=== PATIENT | male | born 1985 | race Caucasian/White ===

== ENCOUNTER 2016-10-11 16:41 | Inpatient (IN) | payer OTHER ==
[2016-10-11] MEDS ORDERED: ACETAMINOPHEN TAB 500 MG TAB PO STA (17:04)
[2016-10-11] MEDS ORDERED: KETOROLAC 30 MG/ML 1 ML VIAL IVP STA (17:06)
[2016-10-11] MEDS: SODIUM CHLORIDE 0.9% 500 ML IV SCH ×2 (17:23→17:24)
[2016-10-11 17:50] LABS: Basophils # (A) 0.1 k/uL (0-0.2); Basophils % (A) 0 %; CH 30.5; CHCM 34.9; Eosinophils % (A) 0 %; HCT 37.5 % (39.0-53.0); HDW 2.57; HGB 13.1 gm/dL (13.0-17.5); Luc # (Auto) 0.17; Luc % (Auto) 1; Lymphocytes # (A) 1.9 k/uL (1.0-4.8); Lymphocytes % (A) 10 %; MCH 30.8 pg (25.0-35.0); MCHC 35.1 g/dL (31.0-37.0); MCV 87.8 fL (80.0-100.0); Mean Platelet Volume 7.4; Monocytes # (A) 0.9 k/uL (0-1.0); Monocytes % (A) 5 %; Neutrophils # (A) 16.3 k/uL (1.3-7.7); Neutrophils % (A) 84 %; RBC 4.27 m/uL (4.30-5.90); RDW 13.4 % (11.5-15.5); WBC 19.4 k/uL (3.8-10.6); WBC (Perox) 19.06
[2016-10-11 18:00] LABS: INR 1.4 (<1.2); Partial Thromboplastin Time 26.2 sec (22.0-30.0); Prothrombin Time 13.4 sec (9.0-12.0)
[2016-10-11 18:05] LABS: ALT 43 U/L (21-72); AST 23 U/L (17-59); Alkaline Phosphatase 91 U/L (38-126); Anion Gap 14 mmol/L; Blood Urea Nitrogen 16 mg/dL (9-20); Calcium 9.5 mg/dL (8.4-10.2); Carbon Dioxide 24 mmol/L (22-30); Chloride 101 mmol/L (98-107); Glucose 101 mg/dL (74-99); Non-African American GFR(MDRD) >60 (>60 ml/min/1.73 sqM); Potassium 3.8 mmol/L (3.5-5.1); Sodium 139 mmol/L (137-145); Total Bilirubin 1.2 mg/dL (0.2-1.3); Total Protein 7.6 g/dL (6.3-8.2)
[2016-10-11 18:05] LABS: Appearance,Urine Clear (Clear); Bilirubin,Urine Negative (Negative); Glucose,Urine (UA) Negative (Negative); Ketones,Urine Negative (Negative); Leukocyte Esterase,Urine Negative (Negative); Mucus,Urine Few /hpf; Nitrite,Urine Negative (Negative); Particle Count 6718; Protein,Urine 1+ (Negative); RBC,Urine 3 /hpf (0-5); Squamous Epithelial Cell,Urine <1 /hpf (0-4); UA Billing (MACRO vs. MICRO) MICRO; WBC,Urine 2 /hpf (0-5)
--- NOTE | 2016-10-11 18:05 | ED ---
General Adult HPI - General Chief complaint: Extremity Injury, Lower Stated complaint: left knee injury Time Seen by Provider: 10/11/16 16:53 Source: patient Mode of arrival: wheelchair Limitations: no limitations - History of Present Illness Initial comments: This 31-year-old white male presents with a complaint of left knee pain, swelling, and erythema. He states that it started yesterday morning. He first noticed it when he kneeled down on it. He denies any actual trauma or known overuse. He does occasional kneeling with work but not severe. He denies any previous similar incidents. He had a temperature of 103 at home last evening. He was nauseated and apparently vomited yesterday as well. He states that it is much worse with any movement. He complains of swelling to his left leg and calf region. No other complaints or modifying factors. - Related Data Home Medications Medication Instructions Recorded Confirmed Ibuprofen [Advil] 200 - 400 mg PO Q8HR PRN 10/11/16 10/11/16 Allergies Allergy/AdvReac Type Severity Reaction Status Date / Time No Known Allergies Allergy Verified 10/11/16 17:13 Review of Systems ROS Statement: Those systems with pertinent positive or pertinent negative responses have been documented in the HPI. ROS Other: All systems not noted in ROS Statement are negative. Past Medical History Past Medical History: No Reported History History of Any Multi-Drug Resistant Organisms: None Reported Past Surgical History: Hernia Repair Past Psychological History: No Psychological Hx Reported Smoking Status: Never smoker Past Alcohol Use History: Rare Past Drug Use History: None Reported General Exam - General Exam Comments Initial Comments: GENERAL: The patient is well nourished and well hydrated. VITAL SIGNS: Heart rate, blood pressure, respiratory rate reviewed as recorded in nurse's notes. EYES: Pupils are round and reactive. Extraocular movements are intact. No conjunctival / lid redness or swelling. ENT: No external evidence of injury, swelling, or ecchymosis. Airway is patent. Throat is clear. NECK: Nontender. No swelling or evidence of injury. No subcutaneous emphysema. Trachea is midline. No thyroid mass. HEART: Regular rate and rhythm. Good peripheral pulses. LUNGS/CHEST: Breath sounds clear and equal bilaterally. No rales, rhonchi, or wheezes. No ecchymosis, subcutaneous emphysema, or tenderness. ABDOMEN: Abdomen soft without tenderness. No palpable masses or organomegaly. No peritoneal signs. No abdominal wall swelling or ecchymosis. EXTREMITIES: There is significant tenderness, swelling, and erythema noted to the left knee more on the anterior aspect and extending laterally. There is no direct fluctuance over the bursa. There is pain with any significant movement of the left knee. Strength is intact. There is no definite effusion. The knee is very warm to touch. No thoracolumbar tenderness. NEUROLOGIC: Sensation is grossly intact. Cranial nerve exam reveals face is symmetrical, tongue is midline, speech is clear. SKIN: No abrasions or ecchymosis is noted. No induration or masses noted. There is erythema noted to the left knee as noted above. PSYCHIATRIC: Alert and oriented. Appropriate behavior and judgment. Limitations: no limitations Course Vital Signs 10/11/16 16:42 Temperature 100.1 F H Pulse Rate 103 H Respiratory 18 Rate Blood Pressure 118/62 O2 Sat by Pulse 96 Oximetry Medical Decision Making - Medical Decision Making The patient was seen and examined. All diagnostics were reviewed. He received some Toradol as well as Tylenol. The white blood cell count is significantly elevated at 19,000. The sedimentation rate and CRP are both significantly elevated as well. The remainder of labs are reviewed. The left lower extremity ultrasound is negative for DVT. The left knee x-rays negative for any acute process. Overall, the possibility of an atypical infectious bursitis is possible. The possibility of a septic knee is possible as well. The case is discussed with orthopedics. Dante, the PA for Dr. García does present and evaluates the patient. They would like the patient admitted to medicine and he may go to the operating room tomorrow. They're agreeable to antibiotics. He started on IV Unasyn and vancomycin. The case is discussed with Dr. Reynolds and he is agreeable to admission. - Lab Data Result diagrams: 10/11/16 17:36 10/11/16 17:36 Lab Results 10/11/16 10/11/16 10/11/16 Range/Units 17:30 17:36 17:36 WBC 19.4 H (3.8-10.6) k/uL RBC 4.27 L (4.30-5.90) m/uL Hgb 13.1 (13.0-17.5) gm/dL Hct 37.5 L (39.0-53.0) % MCV 87.8 (80.0-100.0) fL MCH 30.8 (25.0-35.0) pg MCHC 35.1 (31.0-37.0) g/dL RDW 13.4 (11.5-15.5) % Plt Count 225 (150-450) k/uL Neutrophils % 84 % Lymphocytes % 10 % Monocytes % 5 % Eosinophils % 0 % Basophils % 0 % Neutrophils # 16.3 H (1.3-7.7) k/uL Lymphocytes # 1.9 (1.0-4.8) k/uL Monocytes # 0.9 (0-1.0) k/uL Eosinophils # 0.0 (0-0.7) k/uL Basophils # 0.1 (0-0.2) k/uL ESR 36 H (0-15) mm/hr PT (9.0-12.0) sec INR (<1.2) APTT (22.0-30.0) sec Sodium 139 (137-145) mmol/L Potassium 3.8 (3.5-5.1) mmol/L Chloride 101 (98-107) mmol/L Carbon Dioxide 24 (22-30) mmol/L Anion Gap 14 mmol/L BUN 16 (9-20) mg/dL Creatinine 0.90 (0.66-1.25) mg/dL Est GFR (MDRD) Af Amer >60 (>60 ml/min/1.73 sqM) Est GFR (MDRD) Non-Af >60 (>60 ml/min/1.73 sqM) Glucose 101 H (74-99) mg/dL Plasma Lactic Acid Pacheco (0.7-2.0) mmol/L Calcium 9.5 (8.4-10.2) mg/dL Total Bilirubin 1.2 (0.2-1.3) mg/dL AST 23 (17-59) U/L ALT 43 (21-72) U/L Alkaline Phosphatase 91 (38-126) U/L C-Reactive Protein 220.7 H (<10.0) mg/L Total Protein 7.6 (6.3-8.2) g/dL Albumin 4.3 (3.5-5.0) g/dL Urine Color Yellow Urine Appearance Clear (Clear) Urine pH 6.0 (5.0-8.0) Ur Specific Mcdonald 1.030 (1.001-1.035) Urine Protein 1+ H (Negative) Urine Glucose (UA) Negative (Negative) Urine Ketones Negative (Negative) Urine Blood Trace H (Negative) Urine Nitrite Negative (Negative) Urine Bilirubin Negative (Negative) Urine Urobilinogen 2.0 (<2.0) mg/dL Ur Leukocyte Esterase Negative (Negative) Urine RBC 3 (0-5) /hpf Urine WBC 2 (0-5) /hpf Ur Squamous Epith Cells <1 (0-4) /hpf Urine Mucus Few H (None) /hpf 10/11/16 10/11/16 Range/Units 17:36 17:36 WBC (3.8-10.6) k/uL RBC (4.30-5.90) m/uL Hgb (13.0-17.5) gm/dL Hct (39.0-53.0) % MCV (80.0-100.0) fL MCH (25.0-35.0) pg MCHC (31.0-37.0) g/dL RDW (11.5-15.5) % Plt Count (150-450) k/uL Neutrophils % % Lymphocytes % % Monocytes % % Eosinophils % % Basophils % % Neutrophils # (1.3-7.7) k/uL Lymphocytes # (1.0-4.8) k/uL Monocytes # (0-1.0) k/uL Eosinophils # (0-0.7) k/uL Basophils # (0-0.2) k/uL ESR (0-15) mm/hr PT 13.4 H (9.0-12.0) sec INR 1.4 H (<1.2) APTT 26.2 (22.0-30.0) sec Sodium (137-145) mmol/L Potassium (3.5-5.1) mmol/L Chloride (98-107) mmol/L Carbon Dioxide (22-30) mmol/L Anion Gap mmol/L BUN (9-20) mg/dL Creatinine (0.66-1.25) mg/dL Est GFR (MDRD) Af Amer (>60 ml/min/1.73 sqM) Est GFR (MDRD) Non-Af (>60 ml/min/1.73 sqM) Glucose (74-99) mg/dL Plasma Lactic Acid Pacheco 0.9 (0.7-2.0) mmol/L Calcium (8.4-10.2) mg/dL Total Bilirubin (0.2-1.3) mg/dL AST (17-59) U/L ALT (21-72) U/L Alkaline Phosphatase (38-126) U/L C-Reactive Protein (<10.0) mg/L Total Protein (6.3-8.2) g/dL Albumin (3.5-5.0) g/dL Urine Color Urine Appearance (Clear) Urine pH (5.0-8.0) Ur Specific Mcdonald (1.001-1.035) Urine Protein (Negative) Urine Glucose (UA) (Negative) Urine Ketones (Negative) Urine Blood (Negative) Urine Nitrite (Negative) Urine Bilirubin (Negative) Urine Urobilinogen (<2.0) mg/dL Ur Leukocyte Esterase (Negative) Urine RBC (0-5) /hpf Urine WBC (0-5) /hpf Ur Squamous Epith Cells (0-4) /hpf Urine Mucus (None) /hpf Disposition Clinical Impression: Cellulitis of left knee, Fever, Leukocytosis, Septic infrapatellar bursitis Disposition: ADMITTED IP TO THIS HOSP Condition: Fair Referrals: Miles Mckeon DO [Primary Care Provider] - 1-2 days Time of Disposition: 19:16 Decision Date: 10/11/16 Decision Time: 19:16
--- NOTE | 2016-10-11 18:16 | US ---
EXAMINATION TYPE: US venous doppler duplex LE LT DATE OF EXAM: 10/11/2016 5:58 PM COMPARISON: NONE CLINICAL HISTORY: Pain. left leg pain and edema SIDE PERFORMED: Left TECHNIQUE: The lower extremity deep venous system is examined utilizing real time linear array sonog keisha with graded compression, doppler sonography and color-flow sonography. VESSELS IMAGED: External Iliac Vein (EIV) Common Femoral Vein Deep Femoral Vein Greater Saphenous Vein * Femoral Vein Popliteal Vein Small Saphenous Vein * Proximal Calf Veins (* superficial vessels) Left Leg: Negative for DVT IMPRESSION: Negative exam. No evidence of deep venous thrombosis in the left leg.
--- NOTE | 2016-10-11 18:38 | XR ---
EXAMINATION TYPE: XR knee complete LT DATE OF EXAM: 10/11/2016 COMPARISON: NONE HISTORY: Pain TECHNIQUE: 3 views FINDINGS: I see no fracture nor dislocation. Joint spaces are normal. There are no pathologic calcifi cations. IMPRESSION: Negative left knee exam
[2016-10-11] MEDS ORDERED: VANCOMYCIN 1,000 MG in SODIUM CHLORIDE 0.9% 250 ML IVPB STA (18:42)
[2016-10-11] MEDS ORDERED: AMPICILLIN-SULBACTAM 3 GM in SODIUM CHLORIDE 0.9% 100 ML IVPB STA (18:42)
[2016-10-11] MEDS ORDERED: IV VANCOMYCIN PER PHARMACY 1 EACH MISC MISCELLANE PRN (18:42)
[2016-10-11 18:45] LABS: C Reactive Protein 220.7 mg/L (<10.0)
[2016-10-11 19:05] LABS: Erythrocyte Sedimentation Rate 36 mm/hr (0-15)
[2016-10-11] MEDS ORDERED: IBUPROFEN 400 MG TAB PO PRN (19:17)
[2016-10-11] MEDS ORDERED: HYDROmorphone 1 MG/ML 1 ML SYRINGE IV PRN (19:17)
[2016-10-11] MEDS ORDERED: ACETAMINOPHEN TAB 325 MG TAB PO PRN (19:17)
[2016-10-11] MEDS ORDERED: NALOXONE 0.4 MG/ML 1 ML VIAL IV PRN (19:17)
--- NOTE | 2016-10-11 19:18 | P.HPOR ---
History of Present Illness H&P Date: 10/11/16 Chief Complaint: Left knee cellulitis with septic prepatellar bursitis This is a 31-year-old male who was seen and evaluated today in the emergency room. Patient presented to the emergency room with regards to increasing pain, swelling, erythema involving the left knee. 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 Patient initially noticed the discomfort over the anterior aspect of the left knee yesterday at work when enough down. He did not appreciate any object that he kneeled on. Throughout the day and into the night he started to develop more pain along with fever. Patient did go to work today, noticed the redness was significantly worsening and so was the pain and swelling, this prompted him to go to the hospital. Upon arrival, multiple imaging and lab tests were done. I was contacted by the emergency room physician regarding this patient, and I reported to the hospital for evaluation. At bedside in the emergency room, patient appears comfortable resting in bed. He notes pain more over the anterior and lateral aspect of the knee itself. He denies any pain involving the right lower extremity, bilateral upper extremity, cervical, thoracic and lumbar spine. Patient cannot remember any significant trauma to the left knee. Patient states about 3 or 4 years ago he had a fracture involving the left leg, there is no orthopedic surgical intervention done at that time. Patient denies being sick recently. He does admit to having fevers over the last few days. He denies any paresthesias of the left lower extremity or right lower extremity. He is a relatively healthy male that takes no medications. He denies any chest pain, lightheadedness, shortness of breath, abdominal discomfort, lower extremity paresthesias. Review of Systems Constitutional: Reports as per HPI Past Medical History Past Medical History: No Reported History History of Any Multi-Drug Resistant Organisms: None Reported Past Surgical History: Hernia Repair Past Psychological History: No Psychological Hx Reported Smoking Status: Never smoker Past Alcohol Use History: Rare Past Drug Use History: None Reported Medications and Allergies Home Medications Medication Instructions Recorded Confirmed Type Ibuprofen [Advil] 200 - 400 mg PO Q8HR PRN 10/11/16 10/11/16 History Allergies Allergy/AdvReac Type Severity Reaction Status Date / Time No Known Allergies Allergy Verified 10/11/16 17:13 Physical Examination Left lower extremity: Obvious erythema present over the anterior aspect of the knee and also traces the medial and lateral aspects. No significant effusion present around the knee. There is some mild fluctuance present over the prepatellar bursal area, with notable tenderness in that area. He also remains tender in the lateral patellar facet. Patient is able to extend the leg fully, he can flex the knee to about 90 with minimal difficulty, this does reproduce some tightness over the anterior and lateral aspect of the knee. Logroll maneuver reproduces no pain in the left hip. There is no obvious pain with palpation throughout the foot and ankle, his range of motion is intact at the foot and ankle. His calf is soft, there is no tenderness with palpation. His dorsal pedis pulses 2+, his sensory exam to light touch is intact Results - Labs Labs: Abnormal Lab Results - Last 24 Hours (Table) 10/11/16 10/11/16 10/11/16 Range/Units 17:30 17:36 17:36 WBC 19.4 H (3.8-10.6) k/uL RBC 4.27 L (4.30-5.90) m/uL Hct 37.5 L (39.0-53.0) % Neutrophils # 16.3 H (1.3-7.7) k/uL ESR 36 H (0-15) mm/hr PT (9.0-12.0) sec INR (<1.2) Glucose 101 H (74-99) mg/dL C-Reactive Protein 220.7 H (<10.0) mg/L Urine Protein 1+ H (Negative) Urine Blood Trace H (Negative) Urine Mucus Few H (None) /hpf 10/11/16 Range/Units 17:36 WBC (3.8-10.6) k/uL RBC (4.30-5.90) m/uL Hct (39.0-53.0) % Neutrophils # (1.3-7.7) k/uL ESR (0-15) mm/hr PT 13.4 H (9.0-12.0) sec INR 1.4 H (<1.2) Glucose (74-99) mg/dL C-Reactive Protein (<10.0) mg/L Urine Protein (Negative) Urine Blood (Negative) Urine Mucus (None) /hpf H & H 10/11/16 Range/Units 17:36 Hgb 13.1 (13.0-17.5) gm/dL Hct 37.5 L (39.0-53.0) % Coagulation 10/11/16 Range/Units 17:36 INR 1.4 H (<1.2) Result Diagrams: 10/11/16 17:36 10/11/16 17:36 - Diagnostic results Knee x-ray: report reviewed, image reviewed Assessment and Plan Plan: Imaging: AP and lateral views of the left knee were obtained, no acute fractures or dislocations present I can appreciate some soft tissue thickening in the prepatellar bursal region. Assessment: 1. Left knee pain 2. Left knee septic prepatellar bursitis 3. Unlikely left knee septic arthritis Plan: 1. I was able to discuss this case with my attending Dr. Salcedo, including both imaging, lab and physical exam findings. This is a likely septic prepatellar bursitis involving this left knee. Our plan is to admit the patient to the hospital, we will start broad-spectrum IV antibiotics. He will be made nothing by mouth after midnight with plan for an I&D tomorrow morning. 2. I did discuss this case, including need for surgery with the patient today at bedside. He is in agreement and would like to proceed. 3. Obtain consent 4. Nothing by mouth after midnight 5. Weight-bear as tolerated 6. Pain control 7. Infectious disease consult 8. Further recommendations to follow
[2016-10-11] MEDS ORDERED: VANCOMYCIN 2,000 MG in SODIUM CHLORIDE 0.9% 500 ML IVPB ONE (19:30)
[2016-10-11 20:23] VITALS: BMI 30.8
[2016-10-11] MEDS: SODIUM CHLORIDE 0.9% 1,000 ML IV SCH (22:05)
[2016-10-12] MEDS: AMPICILLIN-SULBACTAM 3 GM in SODIUM CHLORIDE 0.9% 100 ML IVPB SCH ×5 (01:50→23:48)
[2016-10-12] MEDS: ONDANSETRON 4 MG/2 ML VIAL IVP PRN ×2 (03:53→13:09)
[2016-10-12] MEDS: VANCOMYCIN 1,750 MG in SODIUM CHLORIDE 0.9% 250 ML IVPB SCH ×3 (03:54→19:53)
[2016-10-12] MEDS: ENOXAPARIN 40 MG/0.4 ML SYRINGE SQ SCH (08:56)
[2016-10-12] MEDS ORDERED: ESOMEPRAZOLE 20 MG in SODIUM CHLORIDE 0.9% 50 ML IVPB SCH (09:00)
[2016-10-12] MEDS ORDERED: IV FLUID CONTINUATION 1,000 ML IV ONE (09:11)
[2016-10-12 09:53] LABS: Basophils % (A) 0 %; CH 30.3; CHCM 33.6; Eosinophils # (A) 0.2 k/uL (0-0.7); Eosinophils % (A) 1 %; HDW 2.58; HGB 13.3 gm/dL (13.0-17.5); Luc # (Auto) 0.17; Luc % (Auto) 1; Lymphocytes # (A) 1.3 k/uL (1.0-4.8); Lymphocytes % (A) 6 %; MCHC 34.2 g/dL (31.0-37.0); MCV 90.7 fL (80.0-100.0); Mean Platelet Volume 9.1; Monocytes # (A) 0.9 k/uL (0-1.0); Monocytes % (A) 5 %; Neutrophils # (A) 18.2 k/uL (1.3-7.7); Neutrophils % (A) 88 %; RDW 13.3 % (11.5-15.5); WBC 20.7 k/uL (3.8-10.6); WBC (Perox) 20.89
[2016-10-12] MEDS ORDERED: fentaNYL (PF) 50 MCG/ML 2 ML AMP ONE (10:30)
[2016-10-12] MEDS ORDERED: PROPOFOL 10 MG/ML 20 ML VIAL IV ONE (10:30)
[2016-10-12] MEDS ORDERED: LIDOCAINE 1% INJ 10MG/ML (20 ML MDV) ONE (10:30)
[2016-10-12] MEDS ORDERED: MIDAZOLAM 2 MG/2 ML VIAL ONE (10:30)
[2016-10-12] MEDS ORDERED: SUCCINYLCHOLINE CHLORIDE 100 MG/5 ML SYR IV ONE (10:30)
[2016-10-12] MEDS ORDERED: HYDROmorphone (PF) 1 MG/ML ONE (10:30)
[2016-10-12] MEDS ORDERED: HYDROcodone/APAP 7.5-325MG 1 EACH TAB PO PRN (11:46)
--- NOTE | 2016-10-12 11:51 | P.OP ---
Date of Procedure: 10/12/16 Preoperative Diagnosis: Left knee septic prepatellar bursitis/septic knee arthritis Postoperative Diagnosis: Same Procedure(s) Performed: Left knee arthroscopic partial synovectomy/lavage/open prepatellar bursectomy/ irrigation and debridement Implants: Anesthesia: MARY Surgeon: Miles Salcedo Extruder Tender #1: Phoenix Hurley Estimated Blood Loss (ml): 50 Pathology: other (Prepatellar bursal tissue, cultures from the fluid, cultures from prepatellar bursa) Condition: stable Disposition: PACU Indications for Procedure: The patient's 31-year-old male who presents with 1-2 day history of increasing pain in his left knee, redness, and fevers. He had been doing a lot of kneeling. Upon evaluation he was noted have possible septic left knee arthritis versus septic patellar bursitis. A discussion of the risks and benefits of operative intervention was made with the patient. I informed him we would likely attempt aspiration of his left knee and the prepatellar region and consider arthroscopic lavage in addition to open incision and drainage with irrigation and debridement of the prepatellar region. Specific risks of surgery to include persistence of infection, possible need for subsequent procedures was discussed. Informed consent was obtained. Operative Findings: Mild synovitis left knee/hypertrophic prepatellar bursitis Description of Procedure: The patient was brought to the operating room, and after induction of general anesthesia I examined the left knee. There is moderate warmth along with erythema surrounding the anterior aspect. I did not appreciate a definite prepatellar fluctuance, however there appeared to be soft tissue thickening. I also appeared to be a mild effusion in his left knee. I did attempt aspiration prepatellar region and no significant fluid was expressed. I also aspirated the knee from a lateral approach and got 10 mL of serous-appearing fluid. This was sent for culture. The left lower extremity was then prepped and draped in normal fashion. A superior lateral portals made through a 3 mm skin incision superior and lateral to the patella. This was used for outflow. A lateral portals made through a 5 mm vertical skin incision lateral to the patella tendon above the joint line. Diagnostic arthroscopy was performed. A medial portals made through a similar incision medial to the patella tendon above the joint line. There was mild synovitis the medial lateral and patellofemoral compartments was debrided with motorized shaver. I did not appreciate significant chondrolysis or purulent fluid. The anterior cruciate ligament appeared to be intact. There is mild degenerative changes involving the medial compartment. I copiously irrigated the knee with 9 L of fluid. The arthroscope was then removed. The leg was elevated. A 4 cm incision was made over the prepatellar region. Skin was incised sharply. The tourniquet was inflated to 250 mmHg. The skin was incised sharply. Subcutaneous tissues were divided sharply. There was significant bursal thickening and a portion of this tissue was sent for pathology. The prepatellar region was copiously irrigated with saline. I placed a [place] drain deep. The skin was loosely reapproximated with simple 3-0 nylon suture. A sterile dressing was applied. The tourniquet was deflated with approximately 20 minutes total tourniquet time. The patient was awoken from general anesthesia and transferred to recovery room in good condition. Blood loss was estimated at 50 mL. No complications were incurred. Sponge and needle counts were correct in the case.
[2016-10-12] MEDS ORDERED: SODIUM CHLORIDE 0.9% 1,000 ML IV ONE (12:30)
--- NOTE | 2016-10-12 13:24 | HP ---
SUBJECTIVE: This is a 31 year old white male admitted to the emergency room due to increased redness, pain and swelling of the left knee. He apparently over the past day progressive pain, swelling, redness, warmth, anterior aspect of the left knee. 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 He had low grade fever with some redness of his knee upon coming to the hospital. He has most of his pain over the anterior and lateral part of his left knee. No pain on the back or the upper extremity or the right leg. Denies any trauma. Possible surgery will be done on his knee due to elevated white count, fevers, due to septic knee, he will be placed on Vancomycin and Zosyn and admitted. He is having no chest pain , shortness of breath, abdominal discomfort. 14 point review of systems negative except for what is mentioned in the HPI. Surgical history: Hernia repair. Social history: No smoking. No alcohol. Home medications are Ibuprofen. Allergies are negative. Physical exam: Vital signs stable. Afebrile. White count 19.4. Neutrophils 16.3, elevated, sed rate 36, elevated, ( ). Musculoskeletal anterior knee medial and lateral with some redness, swelling and tenderness. Flexion to 90 degrees. Unable to extend it completely. Cardiovascular S1, S2. Lungs are clear. GI is soft. Vascular: Normal dorsalis pedis, posterior tibial, ( ) . Fair mood and affect. Psych: Fair mood. Neurological: Alert and oriented times three. Cranial nerves intact. Hemoglobin 13.1. ASSESSMENT: 1. Probable septic left knee versus prepatellar bursitis. 2. Acute left knee pain. 3. Leukocytosis secondary to possible septic knee. Admit. IV antibiotics for Vancomycin and Zosyn. Surgery for endoscopy versus joint aspiration will be done in the morning. [facility]
[2016-10-12] MEDS: SODIUM CHLORIDE 0.9% 1,000 ML IV SCH (15:04)
[2016-10-12] MEDS: HYDROcodone/APAP 7.5-325MG 1 EACH TAB PO PRN ×2 (19:53→23:55)
[2016-10-12] MEDS: HYDROmorphone 1 MG/ML 1 ML SYRINGE IVP PRN (21:25)
--- NOTE | 2016-10-12 22:45 | P.CONS ---
History of Present Illness - Reason for Consult Consult date: 10/12/16 - Chief Complaint pain left knee - History of Present Illness 31-year-old male presents to the emergency center with relatively sudden onset of pain to his left knee. 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 He often knees throughout this day at work. He knelt down and noticed some pain to the knee and thought he had tweaked it a bit. The following hours it got worse and more swollen. The next day it was painful and he was unable to do his routine route and was just doing the driving. It then markedly worsened. Increasing pain and swelling. Then he was sent to the emergency room.. There is evidence of an extensive swelling to the left pre-[place] area. He has been seen by orthopedic surgery has been taken in the operating room. The prepatellar bursa has been debrided with evidence of infection. Arthroscopy was performed without evidence of jody purulence of the knee. Infectious diseases consultation regarding antibiotic therapy and plans for outpatient treatment. Review of Systems HEENT:Denies headache or acute visual change. Denies sinus or mouth discomforts. Denies neck stiffness or pain. Denies significant oral cavity pain. Denies difficulty on swallowing. Lungs: Denies significant shortness of breath, cough, sputum production, or hemoptysis. Cardiovascular: Denies significant shortness of breath, chest pain, chest wall pain, orthopnea, dyspnea on exertion, syncope Gastrointestinal:Denies nausea, vomiting, diarrhea, constipation, hematemesis, melena, hematochezia. No no significant change of bowel habit noticed. Musculoskeletal: pain to the left knee from surgery Skin: Denies new rash or lesions. No new ulcers or wounds are related.. Neuro: Denies headache or visual change. Denies any new onset weakness or difficulty with ambulation. Denies falls or seizures. Psychiatric:Denies anxiety or depression. Endocrine: Denies significant fatigue, denies significant weight loss or weight gain. Past Medical History Past Medical History: No Reported History History of Any Multi-Drug Resistant Organisms: None Reported Past Surgical History: Hernia Repair Additional Past Surgical History / Comment(s): left leg fracture Past Psychological History: No Psychological Hx Reported Additional Psychological History / Comment(s): lives in the family home with his. No tobacco use. please multiple ports including hockey and baseball play football in high school. Alcohol use. Works for [employer]. No experience. no international travel. 5-year-old daughter at home. no animals. No recreational drug use Smoking Status: Never smoker Past Alcohol Use History: Rare Past Drug Use History: None Reported - Past Family History Brother(s) Family Medical History: No Reported History Medications and Allergies Home Medications and Allergies Comment(s): Current Medications Acetaminophen (Tylenol Tab) 650 mg PO Q6HR PRN PRN Reason: Mild Pain or Fever > 100.5 Hydrocodone Bitart/Acetaminophen ([place] 7.5-325) 1 each PO Q4H PRN PRN Reason: Pain MILD TO MODERATE Last Admin: 10/12/16 19:53 Dose: 1 each Enoxaparin Sodium (Lovenox) 40 mg SQ DAILY [facility] Last Admin: 10/12/16 08:56 Dose: Not Given Hydromorphone HCl (Dilaudid) 1 mg IVP Q3HR PRN PRN Reason: Pain SEVERE Last Admin: 10/12/16 21:25 Dose: 1 mg Vancomycin HCl 1,750 mg/ (Sodium Chloride) 250 mls @ 125 mls/hr IVPB Q8H [facility] Last Admin: 10/12/16 19:53 Dose: 125 mls/hr Ampicillin Sodium/Sulbactam (Sodium 3 gm/ Sodium Chloride) 100 mls @ 100 mls/ hr IVPB Q6HR [facility] Last Admin: 10/12/16 18:06 Dose: 100 mls/hr Sodium Chloride (Saline 0.9%) 1,000 mls @ 75 mls/hr IV .[id number] [facility] Last Admin: 10/12/16 15:04 Dose: Not Given Ibuprofen (Motrin) 400 mg PO Q6HR PRN PRN Reason: Mild Pain or Fever > 100.5 Miscellaneous Information (Vancomycin Trough Due) 1 each MISCELLANE ONCE ONE Stop: 10/13/16 11:01 Naloxone HCl (Narcan) 0.2 mg IV Q2M PRN PRN Reason: Opioid Reversal Ondansetron HCl (Zofran) 4 mg IVP Q8HR PRN PRN Reason: Nausea And Vomiting Last Admin: 10/12/16 13:09 Dose: 4 mg Pantoprazole Sodium (Protonix) 40 mg PO -BRKFST [facility] Home Medications Medication Instructions Recorded Confirmed Type Ibuprofen [Advil] 200 - 400 mg PO Q8HR PRN 10/11/16 10/11/16 History Allergies Allergy/AdvReac Type Severity Reaction Status Date / Time No Known Allergies Allergy Verified 10/11/16 17:13 Physical Exam Vitals: Vital Signs Temp Pulse Pulse Resp BP Pulse Ox 10/12/16 15:00 98.2 F 75 18 113/56 95 10/12/16 14:30 78 16 101/59 96 10/12/16 14:00 73 16 103/59 98 10/12/16 13:25 98.0 F 86 16 131/75 95 10/12/16 12:41 91 16 128/71 98 10/12/16 12:26 93 16 128/65 95 10/12/16 12:11 89 16 135/65 99 10/12/16 11:56 94 16 136/60 98 10/12/16 11:41 99.9 F H 94 10 L 138/64 97 10/12/16 09:14 97.1 F L 88 16 107/61 96 10/12/16 07:00 98 F 95 18 118/67 94 L 10/11/16 22:48 97.9 F 82 16 112/55 95 Intake and Output 10/12/16 10/12/16 10/12/16 06:59 14:59 22:59 Intake Total 950 Output Total 450 50 Balance -450 900 Intake: IV 950 Output: Urine 450 Estimated Blood Loss 50 Other: Voiding Method Urinal Urinal Urinal # Voids 2 HEENT: Anicteric conjunctiva are pink and moist nasal mucosa grossly intact without significant lesions, there is no thrush. Neck: The neck is supple without significant lymphadenopathy or thyromegaly. Lungs: Good bilateral air entry without significant crackles or wheezing. There is no significant bronchial sounds. There is no egophony or dullness. Heart: Regular rate and rhythm with an audible S1-S2, no S3 no S4. There is no significant murmur click or rub, PMI was nondisplaced. Abdomen: Positive bowel sounds soft and nontender without palpable masses or organomegaly. There was no guarding or rebound. Extremities: The upper extremities have excellent pulses they are symmetric, no significant petechiae or telangiectasia. No splinter hemorrhages were noted. the right lower extremity is without lesions.the left knee has the extensive surgical dressibg that is in place and not removed. Neuro: Awake alert oriented to person place and time. There are no acute new gross focal sensory motor deficits. Results CBC & Chem 7: 10/12/16 08:00 10/11/16 17:36 Labs: Abnormal Lab Results - Last 24 Hours (Table) 10/12/16 Range/Units 08:00 WBC 20.7 H (3.8-10.6) k/uL Neutrophils # 18.2 H (1.3-7.7) k/uL Microbiology - Last 24 Hours (Table) 10/11/16 17:36 Blood Culture - Preliminary Blood No Growth after 24 hours 10/12/16 11:00 Gram Stain - Preliminary Knee - Left Wound Culture - Preliminary 10/12/16 11:00 Gram Stain - Preliminary Knee - Left Wound Culture - Preliminary 10/12/16 11:00 Anaerobic Culture - Preliminary Knee - Left 10/12/16 11:00 Anaerobic Culture - Preliminary Knee - Left 10/11/16 17:30 Urine Culture - Preliminary Urine,Voided Laboratory Results WBC 20.7 k/uL (3.8-10.6) H 10/12/16 08:00 RBC 4.30 m/uL (4.30-5.90) 10/12/16 08:00 Hgb 13.3 gm/dL (13.0-17.5) 10/12/16 08:00 Hct 39.0 % (39.0-53.0) 10/12/16 08:00 MCV 90.7 fL (80.0-100.0) 10/12/16 08:00 MCH 31.0 pg (25.0-35.0) 10/12/16 08:00 MCHC 34.2 g/dL (31.0-37.0) 10/12/16 08:00 RDW 13.3 % (11.5-15.5) 10/12/16 08:00 Plt Count 157 k/uL (150-450) 10/12/16 08:00 Neutrophils % 88 % 10/12/16 08:00 Lymphocytes % 6 % 10/12/16 08:00 Monocytes % 5 % 10/12/16 08:00 Eosinophils % 1 % 10/12/16 08:00 Basophils % 0 % 10/12/16 08:00 Neutrophils # 18.2 k/uL (1.3-7.7) H 10/12/16 08:00 Lymphocytes # 1.3 k/uL (1.0-4.8) 10/12/16 08:00 Monocytes # 0.9 k/uL (0-1.0) 10/12/16 08:00 Eosinophils # 0.2 k/uL (0-0.7) 10/12/16 08:00 Basophils # 0.0 k/uL (0-0.2) 10/12/16 08:00 ESR 36 mm/hr (0-15) H 10/11/16 17:36 PT 13.4 sec (9.0-12.0) H 10/11/16 17:36 INR 1.4 (<1.2) H 10/11/16 17:36 APTT 26.2 sec (22.0-30.0) 10/11/16 17:36 Sodium 139 mmol/L (137-145) 10/11/16 17:36 Potassium 3.8 mmol/L (3.5-5.1) 10/11/16 17:36 Chloride 101 mmol/L (98-107) 10/11/16 17:36 Carbon Dioxide 24 mmol/L (22-30) 10/11/16 17:36 Anion Gap 14 mmol/L 10/11/16 17:36 BUN 16 mg/dL (9-20) 10/11/16 17:36 Creatinine 0.90 mg/dL (0.66-1.25) 10/11/16 17:36 Est GFR (MDRD) Af Amer >60 (>60 ml/min/1.73 sqM) 10/11/16 17:36 Est GFR (MDRD) Non-Af >60 (>60 ml/min/1.73 sqM) 10/11/16 17:36 Glucose 101 mg/dL (74-99) H 10/11/16 17:36 Plasma Lactic Acid [place] 0.9 mmol/L (0.7-2.0) 10/11/16 17:36 Calcium 9.5 mg/dL (8.4-10.2) 10/11/16 17:36 Total Bilirubin 1.2 mg/dL (0.2-1.3) 10/11/16 17:36 AST 23 U/L (17-59) 10/11/16 17:36 ALT 43 U/L (21-72) 10/11/16 17:36 Alkaline Phosphatase 91 U/L (38-126) 10/11/16 17:36 C-Reactive Protein 220.7 mg/L (<10.0) H 10/11/16 17:36 Total Protein 7.6 g/dL (6.3-8.2) 10/11/16 17:36 Albumin 4.3 g/dL (3.5-5.0) 10/11/16 17:36 Urine Color Yellow 10/11/16 17:30 Urine Appearance Clear (Clear) 10/11/16 17:30 Urine pH 6.0 (5.0-8.0) 10/11/16 17:30 Ur Specific [place] 1.030 (1.001-1.035) 10/11/16 17:30 Urine Protein 1+ (Negative) H 10/11/16 17:30 Urine Glucose (UA) Negative (Negative) 10/11/16 17:30 Urine Ketones Negative (Negative) 10/11/16 17:30 Urine Blood Trace (Negative) H 10/11/16 17:30 Urine Nitrite Negative (Negative) 10/11/16 17:30 Urine Bilirubin Negative (Negative) 10/11/16 17:30 Urine Urobilinogen 2.0 mg/dL (<2.0) 10/11/16 17:30 Ur Leukocyte Esterase Negative (Negative) 10/11/16 17:30 Urine RBC 3 /hpf (0-5) 10/11/16 17:30 Urine WBC 2 /hpf (0-5) 10/11/16 17:30 Ur Squamous Epith Cells <1 /hpf (0-4) 10/11/16 17:30 Urine Mucus Few /hpf (None) H 10/11/16 17:30 Microbiology 10/11/16 17:36 Blood Blood Culture - Preliminary No Growth after 24 hours 10/12/16 11:00 Knee - Left Gram Stain - Preliminary 10/12/16 11:00 Knee - Left Wound Culture - Preliminary 10/12/16 11:00 Knee - Left Gram Stain - Preliminary 10/12/16 11:00 Knee - Left Wound Culture - Preliminary 10/12/16 11:00 Knee - Left Anaerobic Culture - Preliminary 10/12/16 11:00 Knee - Left Anaerobic Culture - Preliminary 10/11/16 17:30 Urine,Voided Urine Culture - Preliminary Assessment and Plan (1) Septic infrapatellar bursitis Narrative/Plan: 31-year-old male presents to Hospital with significant pain and swelling to his left knee. was taken Again with evidence of the significant infection of the bursa, Arthroscopically was performed without evidence of jody infection, Cultures however are pending.Antibiotic therapy with vancomycin and piperacillin tazobactam being utilized for now. The patient is somewhat anxious about his discharged home in the near future. Ideally would have cultures available. If there is any evidence of joint infection would need intravenous antibiotic therapy. A serious bursa infection also response considerably better to intravenous antibiotic therapy. Surgery will monitor and hopefully will be able to have a discharge plan. Not likely in keeping with the patient's desires. Status: Acute (2) Cellulitis of left knee Status: Acute (3) Fever Status: Acute (4) Leukocytosis Status: Acute
[2016-10-13] MEDS: VANCOMYCIN 1,750 MG in SODIUM CHLORIDE 0.9% 250 ML IVPB SCH ×2 (03:35→14:38)
[2016-10-13] MEDS: SODIUM CHLORIDE 0.9% 1,000 ML IV SCH ×2 (03:37→11:20)
[2016-10-13] MEDS: HYDROcodone/APAP 7.5-325MG 1 EACH TAB PO PRN ×5 (05:21→20:56)
[2016-10-13] MEDS: AMPICILLIN-SULBACTAM 3 GM in SODIUM CHLORIDE 0.9% 100 ML IVPB SCH ×3 (05:58→18:19)
[2016-10-13] MEDS: PANTOPRAZOLE 40 MG TABLET PO SCH (07:46)
[2016-10-13] MEDS: ENOXAPARIN 40 MG/0.4 ML SYRINGE SQ SCH (07:46)
[2016-10-13] MEDS: HYDROmorphone 1 MG/ML 1 ML SYRINGE IVP PRN ×5 (07:53→18:19)
--- NOTE | 2016-10-13 10:14 | P.PN ---
Subjective Principal diagnosis: Status post I&D left septic prepatellar bursal, left knee arthroscopy with lavage and partial synovectomy Patient is seen today resting in his hospital bed. Patient is seen today resting in his hospital bed. He appears comfortable. Minimal weightbearing at this time. Denies any fevers or chills. States that the knee feels a lot better since yesterday. Objective - Vital Signs Vital signs: Vital Signs Temp 98.6 F 10/13/16 07:00 Pulse 95 10/13/16 08:00 Resp 18 10/13/16 08:00 BP 114/56 10/13/16 07:00 Pulse Ox 93 L 10/13/16 07:00 Intake & Output 10/12/16 10/13/16 10/13/16 18:59 06:59 18:59 Intake Total 950 1125 Output Total 50 575 Balance 900 550 Weight 108.862 kg Intake: IV 950 Intake, IV Titration 1125 Amount Ampicillin-Sulbactam 3 gm 100 In Sodium Chloride 0.9% 100 ml @ 100 mls/hr IVPB Q6HR [facility] Rx#:[id number] Sodium Chloride 0.9% 1, 525 000 ml @ 75 mls/hr IV . [id number] [facility] Rx#:[id number] Vancomycin 1,750 mg In 500 Sodium Chloride 0.9% 250 ml @ 125 mls/hr IVPB Q8H [facility] Rx#:[id number] Output: Urine 575 Estimated Blood Loss 50 Other: Voiding Method Urinal Toilet Toilet Urinal Urinal # Voids 2 1 1 - Exam Left lower extremity: Initial postoperative bandage was removed. [place] drain was also removed. Small amount of dried blood noted on the bandage. No active drainage. Stitches are all in good position. No significant swelling surrounding the knee , including the joint itself and the anterior aspect. Arthroscopic portal sites are clean and intact with Steri-Strips. Limited flexion with the knee at this time. Plantar flexion, dorsiflexion, EHL, FHL are intact. Sensory exam to light touch throughout the extremity is intact. Dorsal pedis pulses 2+. - Labs CBC & Chem 7: 10/12/16 08:00 10/11/16 17:36 Labs: Microbiology - Last 24 Hours (Table) 10/12/16 11:00 Gram Stain - Preliminary Knee - Left Wound Culture - Preliminary 10/11/16 17:30 Urine Culture - Final Urine,Voided 10/11/16 17:36 Blood Culture - Preliminary Blood No Growth after 24 hours 10/12/16 11:00 Gram Stain - Preliminary Knee - Left Wound Culture - Preliminary 10/12/16 11:00 Anaerobic Culture - Preliminary Knee - Left 10/12/16 11:00 Anaerobic Culture - Preliminary Knee - Left Assessment and Plan Plan: Assessment: 1. Postop day #1 status post I&D septic prepatellar bursa, left knee arthroscopy with partial synovectomy and lavage Plan: 1. Dr. Salcedo was present today to examine the patient. We will continue current IV antibiotics per infectious disease. Culture and sensitivity is pending. 2. Weight-bear as tolerated, ice and elevate the left knee often 3. Pain control 4. GI and DVT prophylaxis, continue subcu Lovenox 5. Await culture and sensitivities 6. Further recommendations to follow Time with Patient: Less than 30
[2016-10-13] MEDS ORDERED: VANCOMYCIN TROUGH DUE 1 EACH MISC MISCELLANE ONE (11:00)
[2016-10-13 11:01] LABS: Basophils % (A) 0 %; CH 29.9; CHCM 32.8; Eosinophils # (A) 0.1 k/uL (0-0.7); Eosinophils % (A) 1 %; HCT 32.8 % (39.0-53.0); HDW 2.65; HGB 10.9 gm/dL (13.0-17.5); Luc # (Auto) 0.15; Luc % (Auto) 1; Lymphocytes # (A) 1.4 k/uL (1.0-4.8); Lymphocytes % (A) 11 %; MCH 30.4 pg (25.0-35.0); MCHC 33.2 g/dL (31.0-37.0); MCV 91.7 fL (80.0-100.0); Mean Platelet Volume 7.9; Monocytes # (A) 0.5 k/uL (0-1.0); Monocytes % (A) 4 %; Neutrophils # (A) 10.6 k/uL (1.3-7.7); Neutrophils % (A) 84 %; RBC 3.57 m/uL (4.30-5.90); RDW 13.1 % (11.5-15.5); WBC 12.7 k/uL (3.8-10.6); WBC (Perox) 13.57
[2016-10-13 11:14] LABS: Non-African American GFR(MDRD) >60 (>60 ml/min/1.73 sqM)
[2016-10-13 11:41] LABS: C Reactive Protein 208.1 mg/L (<10.0)
[2016-10-13] MEDS: VANCOMYCIN 2,000 MG in SODIUM CHLORIDE 0.9% 500 ML IVPB SCH (21:40)
[2016-10-13 22:55] VITALS: RESP 16
[2016-10-14] MEDS: AMPICILLIN-SULBACTAM 3 GM in SODIUM CHLORIDE 0.9% 100 ML IVPB SCH ×5 (01:08→23:14)
[2016-10-14] MEDS: SODIUM CHLORIDE 0.9% 1,000 ML IV SCH ×3 (01:11→16:26)
[2016-10-14] MEDS: VANCOMYCIN 2,000 MG in SODIUM CHLORIDE 0.9% 500 ML IVPB SCH ×3 (03:29→19:27)
[2016-10-14] MEDS: ONDANSETRON 4 MG/2 ML VIAL IVP PRN (06:22)
[2016-10-14 07:48] LABS: Basophils % (A) 0 %; CH 29.7; CHCM 32.9; Eosinophils # (A) 0.2 k/uL (0-0.7); Eosinophils % (A) 2 %; HCT 32.4 % (39.0-53.0); HDW 2.66; HGB 10.8 gm/dL (13.0-17.5); Luc # (Auto) 0.11; Luc % (Auto) 1; Lymphocytes # (A) 1.2 k/uL (1.0-4.8); Lymphocytes % (A) 11 %; MCH 30.2 pg (25.0-35.0); MCHC 33.2 g/dL (31.0-37.0); MCV 90.8 fL (80.0-100.0); Mean Platelet Volume 7.6; Monocytes # (A) 0.4 k/uL (0-1.0); Monocytes % (A) 4 %; Neutrophils # (A) 8.4 k/uL (1.3-7.7); Neutrophils % (A) 82 %; RBC 3.57 m/uL (4.30-5.90); RDW 13.1 % (11.5-15.5); WBC 10.3 k/uL (3.8-10.6); WBC (Perox) 11.09
[2016-10-14] MEDS: ENOXAPARIN 40 MG/0.4 ML SYRINGE SQ SCH (07:50)
[2016-10-14] MEDS: PANTOPRAZOLE 40 MG TABLET PO SCH (07:50)
[2016-10-14] MEDS: HYDROmorphone 1 MG/ML 1 ML SYRINGE IVP PRN ×3 (08:14→15:29)
--- NOTE | 2016-10-14 09:57 | P.PN ---
Subjective Principal diagnosis: Status post I&D left septic prepatellar bursal, left knee arthroscopy with lavage and partial synovectomy Patient is seen today resting in his hospital bed. Patient is seen today resting in his hospital bed. He appears comfortable. Denies any fevers or chills. Objective - Vital Signs Vital signs: Vital Signs Temp 97.4 F L 10/14/16 07:00 Pulse 77 10/14/16 08:00 Resp 16 10/14/16 08:00 BP 114/79 10/14/16 07:00 Pulse Ox 97 10/14/16 07:00 Intake & Output 10/13/16 10/14/16 10/14/16 18:59 06:59 18:59 Intake Total 1252.5 2700 Balance 1252.5 2700 Weight 108.862 kg 108.862 kg Intake: Intake, IV Titration 1012.5 2700 Amount Ampicillin-Sulbactam 3 gm 100 100 In Sodium Chloride 0.9% 100 ml @ 100 mls/hr IVPB Q6HR [facility] Rx#:[id number] Esomeprazole 20 mg In 100 Sodium Chloride 0.9% 50 ml @ 100 mls/hr IVPB DAILY [facility] Rx#:[id number] Sodium Chloride 0.9% 1, 562.5 000 ml @ 75 mls/hr IV . [id number] [facility] Rx#:[id number] Sodium Chloride 0.9% 1, 600 000 ml As IV .[facility] Rx#:[id number] Vancomycin 1,750 mg In 250 Sodium Chloride 0.9% 250 ml @ 125 mls/hr IVPB Q8H [facility] Rx#:[id number] Vancomycin 2,000 mg In 2000 Sodium Chloride 0.9% 500 ml @ 167 mls/hr IVPB Q8H [facility] Rx#:[id number] Oral 240 Other: Voiding Method Toilet Toilet Toilet Urinal Urinal Urinal # Voids 4 1 1 # Bowel Movements 1 - Exam Left lower extremity: Incision is clean, dry, and intact. No active drainage. Stitches are all in good position. Small effusion noted around the knee Arthroscopic portal sites are clean and intact with Steri-Strips. Plantar flexion, dorsiflexion, EHL, FHL are intact. Sensory exam to light touch throughout the extremity is intact. Dorsal pedis pulses 2+. - Labs CBC & Chem 7: 10/14/16 07:07 10/13/16 10:12 Labs: Abnormal Lab Results - Last 24 Hours (Table) 10/13/16 10/13/16 10/14/16 Range/Units 10:12 10:12 07:07 WBC 12.7 H (3.8-10.6) k/uL RBC 3.57 L 3.57 L (4.30-5.90) m/uL Hgb 10.9 L 10.8 L (13.0-17.5) gm/dL Hct 32.8 L 32.4 L (39.0-53.0) % Neutrophils # 10.6 H 8.4 H (1.3-7.7) k/uL C-Reactive Protein 208.1 H (<10.0) mg/L Microbiology - Last 24 Hours (Table) 10/11/16 17:36 Blood Culture - Preliminary Blood No Growth after 48 hours 10/12/16 11:00 Gram Stain - Preliminary Knee - Left Wound Culture - Preliminary Assessment and Plan Plan: Assessment: 1. Postop day #2 status post I&D septic prepatellar bursa, left knee arthroscopy with partial synovectomy and lavage Plan: 1. Continue daily dressing changes 2. Weight-bear as tolerated, ice and elevate the left knee often 3. Pain control 4. GI and DVT prophylaxis, continue subcu Lovenox 5. Await culture and sensitivities 6. Further recommendations to follow Time with Patient: Less than 30
--- NOTE | 2016-10-14 10:16 | PN ---
SUBJECTIVE: 31-year-old white male with left knee cellulitis and traumatic bursitis. So far cultures of the knee aspiration are negative which will rule out a PICC line. If he continues to be culture free by Saturday he will be sent home on oral antibiotics without a PICC line and slowly returned to ambulation. CARDIOVASCULAR: S1/S2. Slight a. fib. NEUROLOGIC: Alert and oriented x3. MUSCULOSKELETAL: Please see knee exam from orthopedics. Some mild swelling and redness around the knee. ASSESSMENT: 1. Left knee cellulitis. 2. Septic bursitis, traumatic. Possible discharge home in the next 48 hours if cultures are negative. Hopefully on oral antibiotics. If cultures are positive from intra-knee aspiration status post surgery, then IV PICC line will be necessary. JENNIFER
[2016-10-14] MEDS: HYDROcodone/APAP 7.5-325MG 1 EACH TAB PO PRN ×2 (16:26→20:49)
[2016-10-15] MEDS: VANCOMYCIN 2,000 MG in SODIUM CHLORIDE 0.9% 500 ML IVPB SCH ×2 (04:01→12:55)
[2016-10-15] MEDS: AMPICILLIN-SULBACTAM 3 GM in SODIUM CHLORIDE 0.9% 100 ML IVPB SCH ×3 (05:53→17:34)
[2016-10-15] MEDS: HYDROcodone/APAP 7.5-325MG 1 EACH TAB PO PRN ×3 (07:14→15:52)
[2016-10-15] MEDS: ENOXAPARIN 40 MG/0.4 ML SYRINGE SQ SCH (07:15)
[2016-10-15] MEDS: PANTOPRAZOLE 40 MG TABLET PO SCH (07:15)
[2016-10-15] MEDS: HYDROmorphone 1 MG/ML 1 ML SYRINGE IVP PRN ×3 (07:19→14:44)
[2016-10-15 10:49] LABS: Basophils % (A) 0 %; CH 29.3; Eosinophils # (A) 0.2 k/uL (0-0.7); Eosinophils % (A) 2 %; HCT 33.1 % (39.0-53.0); HGB 11.1 gm/dL (13.0-17.5); Luc # (Auto) 0.08; Luc % (Auto) 1; Lymphocytes # (A) 1.4 k/uL (1.0-4.8); Lymphocytes % (A) 15 %; MCH 29.9 pg (25.0-35.0); MCHC 33.6 g/dL (31.0-37.0); MCV 89.1 fL (80.0-100.0); Mean Platelet Volume 7.1; Monocytes # (A) 0.4 k/uL (0-1.0); Monocytes % (A) 4 %; Neutrophils # (A) 7.6 k/uL (1.3-7.7); Neutrophils % (A) 78 %; RBC 3.72 m/uL (4.30-5.90); RDW 12.6 % (11.5-15.5); WBC 9.8 k/uL (3.8-10.6); WBC (Perox) 10.39
[2016-10-15] MEDS ORDERED: VANCOMYCIN TROUGH DUE 1 EACH MISC MISCELLANE ONE ×2 (11:00→19:15)
[2016-10-15 11:15] LABS: Anion Gap 7 mmol/L; Blood Urea Nitrogen 5 mg/dL (9-20); Calcium 8.4 mg/dL (8.4-10.2); Carbon Dioxide 29 mmol/L (22-30); Chloride 105 mmol/L (98-107); Glucose 99 mg/dL (74-99); Non-African American GFR(MDRD) >60 (>60 ml/min/1.73 sqM); Potassium 3.8 mmol/L (3.5-5.1); Sodium 141 mmol/L (137-145)
[2016-10-15 15:09] VITALS: BP 117/65; PULSE 76; TEMP 98
--- NOTE | 2016-10-15 15:37 | P.PN ---
Subjective Principal diagnosis: Status post I&D left septic prepatellar bursal, left knee arthroscopy with lavage and partial synovectomy Patient is seen today resting in his hospital bed. Patient is seen today resting in his hospital bed. He appears comfortable. Denies any fevers or chills. Objective - Vital Signs Vital signs: Vital Signs Temp 98 F 10/15/16 15:00 Pulse 76 10/15/16 15:30 Resp 16 10/15/16 15:30 BP 117/65 10/15/16 15:00 Pulse Ox 97 10/15/16 15:00 Intake & Output 10/14/16 10/15/16 10/15/16 18:59 06:59 18:59 Intake Total 1605 1500 1365 Balance 1605 1500 1365 Weight 108.862 kg 108.862 kg Intake: IV 500 500 Vancomycin 2,000 mg In 500 500 Sodium Chloride 0.9% 500 ml @ 167 mls/hr IVPB Q8H [facility] Rx#:[id number] Intake, IV Titration 1125 600 625 Amount Ampicillin-Sulbactam 3 gm 100 100 In Sodium Chloride 0.9% 100 ml @ 100 mls/hr IVPB Q6HR [facility] Rx#:[id number] Sodium Chloride 0.9% 1, 525 600 525 000 ml @ 75 mls/hr IV . [id number] [facility] Rx#:[id number] Vancomycin 2,000 mg In 500 Sodium Chloride 0.9% 500 ml @ 167 mls/hr IVPB Q8H [facility] Rx#:[id number] Oral 480 400 240 Other: Voiding Method Toilet Toilet Toilet Urinal Urinal Urinal # Voids 5 2 4 # Bowel Movements 1 - Exam Left lower extremity: Incision is clean, dry, and intact. No active drainage. Stitches are all in good position. Arthroscopic portal sites are clean and intact with Steri- Strips. Plantar flexion, dorsiflexion, EHL, FHL are intact. Sensory exam to light touch throughout the extremity is intact. Dorsal pedis pulses 2+. - Labs CBC & Chem 7: 10/15/16 10:36 10/15/16 10:36 Labs: Abnormal Lab Results - Last 24 Hours (Table) 10/15/16 10/15/16 Range/Units 10:36 10:36 RBC 3.72 L (4.30-5.90) m/uL Hgb 11.1 L (13.0-17.5) gm/dL Hct 33.1 L (39.0-53.0) % BUN 5 L (9-20) mg/dL Microbiology - Last 24 Hours (Table) 10/12/16 11:00 Gram Stain - Final Knee - Left Wound Culture - Final Strep pyogenes (grp a) 10/11/16 17:36 Blood Culture - Preliminary Blood No Growth after 72 hours 10/12/16 11:00 Anaerobic Culture - Preliminary Knee - Left 10/12/16 11:00 Anaerobic Culture - Preliminary Knee - Left 10/12/16 11:00 Gram Stain - Final Knee - Left Wound Culture - Final Assessment and Plan Plan: Assessment: 1. Postop day #3 status post I&D septic prepatellar bursa, left knee arthroscopy with partial synovectomy and lavage Plan: 1. Continue daily dressing changes 2. Weight-bear as tolerated, ice and elevate the left knee often 3. Pain control 4. GI and DVT prophylaxis, continue subcu Lovenox 5. Plan for PICC line tomorrow 6. Likely discharge home tomorrow after PICC line Time with Patient: Less than 30
[2016-10-15] MEDS: SODIUM CHLORIDE 0.9% 1,000 ML IV SCH (17:33)
--- NOTE | 2016-10-15 22:03 | P.PN ---
Subjective Principal diagnosis: pain left knee 31-year-old male presents to the emergency center with relatively sudden onset of pain to his left knee. 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 He often knees throughout this day at work. He knelt down and noticed some pain to the knee and thought he had tweaked it a bit. The following hours it got worse and more swollen. The next day it was painful and he was unable to do his routine route and was just doing the driving. It then markedly worsened. Increasing pain and swelling. Then he was sent to the emergency room.. There is evidence of an extensive swelling to the left pre-Management Trainee area. He has been seen by orthopedic surgery has been taken in the operating room. The prepatellar bursa has been debrided with evidence of infection. Arthroscopy was performed without evidence of jody purulence of the knee. Patient is now improved. Pain is better controlled. Has been evaluated by orthopedics and his primary medical service. May be a candidate for discharge to home. Objective - Vital Signs Vital signs: Vital Signs Temp 98 F 10/15/16 15:00 Pulse 76 10/15/16 15:30 Resp 16 10/15/16 15:30 BP 117/65 10/15/16 15:00 Pulse Ox 97 10/15/16 15:00 Intake & Output 10/15/16 10/15/16 10/16/16 06:59 18:59 06:59 Intake Total 1500 1365 Balance 1500 1365 Weight 108.862 kg Intake: IV 500 500 Vancomycin 2,000 mg In 500 500 Sodium Chloride 0.9% 500 ml @ 167 mls/hr IVPB Q8H ROSA Rx#:[id number] Intake, IV Titration 600 625 Amount Ampicillin-Sulbactam 3 gm 100 In Sodium Chloride 0.9% 100 ml @ 100 mls/hr IVPB Q6HR ROSA Rx#:[id number] Sodium Chloride 0.9% 1, 600 525 000 ml @ 75 mls/hr IV . [id number] ROSA Rx#:[id number] Oral 400 240 Other: Voiding Method Toilet Toilet Urinal Urinal # Voids 2 4 - Exam HEENT: Anicteric conjunctiva are pink and moist nasal mucosa grossly intact without significant lesions, there is no thrush. Neck: The neck is supple without significant lymphadenopathy or thyromegaly. Lungs: Good bilateral air entry without significant crackles or wheezing. There is no significant bronchial sounds. There is no egophony or dullness. Heart: Regular rate and rhythm with an audible S1-S2, no S3 no S4. There is no significant murmur click or rub, PMI was nondisplaced. Abdomen: Positive bowel sounds soft and nontender without palpable masses or organomegaly. There was no guarding or rebound. Extremities: The upper extremities have excellent pulses they are symmetric, no significant petechiae or telangiectasia. No splinter hemorrhages were noted. the right lower extremity is without lesions.the left knee reveals evidence the recent surgery. The midline incision is healing well. The port holes are healing well. The swelling and erythema have started to improve. fourdrinier machine tender but less painful to touch. No expressible purulence Neuro: Awake alert oriented to person place and time. There are no acute new gross focal sensory motor deficits. - Labs CBC & Chem 7: 10/15/16 10:36 10/15/16 10:36 Labs: Abnormal Lab Results - Last 24 Hours (Table) 10/15/16 10/15/16 Range/Units 10:36 10:36 RBC 3.72 L (4.30-5.90) m/uL Hgb 11.1 L (13.0-17.5) gm/dL Hct 33.1 L (39.0-53.0) % BUN 5 L (9-20) mg/dL Microbiology - Last 24 Hours (Table) 10/11/16 17:36 Blood Culture - Preliminary Blood No Growth after 96 hours 10/12/16 11:00 Gram Stain - Final Knee - Left Wound Culture - Final Strep pyogenes (grp a) Laboratory Results WBC 9.8 k/uL (3.8-10.6) 10/15/16 10:36 RBC 3.72 m/uL (4.30-5.90) L 10/15/16 10:36 Hgb 11.1 gm/dL (13.0-17.5) L 10/15/16 10:36 Hct 33.1 % (39.0-53.0) L 10/15/16 10:36 MCV 89.1 fL (80.0-100.0) 10/15/16 10:36 MCH 29.9 pg (25.0-35.0) 07/24/17 10:36 MCHC 33.6 g/dL (31.0-37.0) 10/15/16 10:36 RDW 12.6 % (11.5-15.5) 10/15/16 10:36 Plt Count 290 k/uL (150-450) 10/15/16 10:36 Neutrophils % 78 % 10/15/16 10:36 Lymphocytes % 15 % 10/15/16 10:36 Monocytes % 4 % 10/15/16 10:36 Eosinophils % 2 % 10/15/16 10:36 Basophils % 0 % 10/15/16 10:36 Neutrophils # 7.6 k/uL (1.3-7.7) 10/15/16 10:36 Lymphocytes # 1.4 k/uL (1.0-4.8) 10/15/16 10:36 Monocytes # 0.4 k/uL (0-1.0) 10/15/16 10:36 Eosinophils # 0.2 k/uL (0-0.7) 10/15/16 10:36 Basophils # 0.0 k/uL (0-0.2) 10/15/16 10:36 ESR 36 mm/hr (0-15) H 10/11/16 17:36 PT 13.4 sec (9.0-12.0) H 10/11/16 17:36 INR 1.4 (<1.2) H 10/11/16 17:36 APTT 26.2 sec (22.0-30.0) 10/11/16 17:36 Sodium 141 mmol/L (137-145) 10/15/16 10:36 Potassium 3.8 mmol/L (3.5-5.1) 10/15/16 10:36 Chloride 105 mmol/L (98-107) 10/15/16 10:36 Carbon Dioxide 29 mmol/L (22-30) 10/15/16 10:36 Anion Gap 7 mmol/L 10/15/16 10:36 BUN 5 mg/dL (9-20) L 10/15/16 10:36 Creatinine 0.78 mg/dL (0.66-1.25) 10/15/16 10:36 Est GFR (MDRD) Af Amer >60 (>60 ml/min/1.73 sqM) 10/15/16 10:36 Est GFR (MDRD) Non-Af >60 (>60 ml/min/1.73 sqM) 10/15/16 10:36 Glucose 99 mg/dL (74-99) 10/15/16 10:36 Plasma Lactic Acid Pacheco 0.9 mmol/L (0.7-2.0) 10/11/16 17:36 Calcium 8.4 mg/dL (8.4-10.2) 10/15/16 10:36 Total Bilirubin 1.2 mg/dL (0.2-1.3) 10/11/16 17:36 AST 23 U/L (17-59) 10/11/16 17:36 ALT 43 U/L (21-72) 10/11/16 17:36 Alkaline Phosphatase 91 U/L (38-126) 10/11/16 17:36 C-Reactive Protein 208.1 mg/L (<10.0) H 10/13/16 10:12 Total Protein 7.6 g/dL (6.3-8.2) 10/11/16 17:36 Albumin 4.3 g/dL (3.5-5.0) 10/11/16 17:36 Urine Color Yellow 10/11/16 17:30 Urine Appearance Clear (Clear) 10/11/16 17:30 Urine pH 6.0 (5.0-8.0) 10/11/16 17:30 Ur Specific Kane 1.030 (1.001-1.035) 10/11/16 17:30 Urine Protein 1+ (Negative) H 10/11/16 17:30 Urine Glucose (UA) Negative (Negative) 10/11/16 17:30 Urine Ketones Negative (Negative) 10/11/16 17:30 Urine Blood Trace (Negative) H 10/11/16 17:30 Urine Nitrite Negative (Negative) 10/11/16 17:30 Urine Bilirubin Negative (Negative) 10/11/16 17:30 Urine Urobilinogen 2.0 mg/dL (<2.0) 10/11/16 17:30 Ur Leukocyte Esterase Negative (Negative) 10/11/16 17:30 Urine RBC 3 /hpf (0-5) 10/11/16 17:30 Urine WBC 2 /hpf (0-5) 10/11/16 17:30 Ur Squamous Epith Cells <1 /hpf (0-4) 10/11/16 17:30 Urine Mucus Few /hpf (None) H 10/11/16 17:30 Vancomycin Trough 11.2 ug/mL 10/13/16 10:12 Microbiology 10/11/16 17:36 Blood Blood Culture - Preliminary No Growth after 96 hours 10/12/16 11:00 Knee - Left Gram Stain - Final 10/12/16 11:00 Knee - Left Wound Culture - Final Strep pyogenes (grp a) 10/12/16 11:00 Knee - Left Anaerobic Culture - Preliminary 10/12/16 11:00 Knee - Left Anaerobic Culture - Preliminary 10/12/16 11:00 Knee - Left Gram Stain - Final 10/12/16 11:00 Knee - Left Wound Culture - Final 10/11/16 17:30 Urine,Voided Urine Culture - Final Assessment and Plan (1) Septic infrapatellar bursitis Narrative/Plan: 31-year-old male presents to Hospital with significant pain and swelling to his left knee. was taken Again with evidence of the significant infection of the bursa, Arthroscopically was performed without evidence of jody infection, Cultures however are pending.Antibiotic therapy with vancomycin and piperacillin tazobactam being utilized for now. The patient is somewhat anxious about his discharged home in the near future. Ideally would have cultures available. If there is any evidence of joint infection would need intravenous antibiotic therapy. A serious bursa infection also response considerably better to intravenous antibiotic therapy. Surgery has followed. Patient is now showing marked improvement. Appears to have a bursal infection and not a deep knee joint infection. Patient is anxious to get back to work and does not want outpatient intravenous antibiotic therapy if at all possible. Consequently we will do a trial of moxifloxacin 400 mg daily and monitor him closely in the outpatient setting. He understands if there is any worsening we need to be converted to intravenous antibiotic therapy. Patient is cleared for discharge. Status: Acute (2) Cellulitis of left knee Status: Acute (3) Fever Status: Acute (4) Leukocytosis Status: Acute
== END 2016-10-15 18:15 | disposition home or self-care (01) | DRG 488 ==
LOC: EC 16:41 → 5MS5E 19:21
PROVIDERS: ADMIT Family Medicine; ATTEND Family Medicine
PROC: 0MB Bursae and Ligaments, Excision (ICD-10-PCS; 2016-10-12)
PROC: 3E1U38Z Irrigation of Joints using Irrigating Substance, Percutaneous Approach (ICD-10-PCS; 2016-10-12)
PROC: 0SBD4ZZ Excision of Left Knee Joint, Percutaneous Endoscopic Approach (ICD-10-PCS; principal; 2016-10-12 07:30)
DX: M71.162 Other infective bursitis, left knee (principal); L03.116 Cellulitis of left lower limb; M65.162 Other infective (teno)synovitis, left knee
CPT/HCPCS: 36415; 80048; 80053; 80202; 81001; 82565; 83605; 85025; 85610; 85652; 85730; 86140; 87040; 87070; 87075; 87077; 87086; 87186; 87205; 88305; 96361; 96374; 96375; 99285

== ENCOUNTER → 2016-11-05 | Outpatient (CLI) | payer SELFPAY ==
[2016-11-05 12:14] LABS: Basophils % (A) 1 %; CHCM 33.3; Eosinophils # (A) 0.2 k/uL (0-0.7); Eosinophils % (A) 3 %; HCT 41.7 % (39.0-53.0); HGB 13.7 gm/dL (13.0-17.5); Luc # (Auto) 0.08; Luc % (Auto) 1; Lymphocytes # (A) 2.1 k/uL (1.0-4.8); Lymphocytes % (A) 35 %; MCH 29.7 pg (25.0-35.0); MCHC 32.9 g/dL (31.0-37.0); MCV 90.5 fL (80.0-100.0); Monocytes # (A) 0.4 k/uL (0-1.0); Monocytes % (A) 7 %; Neutrophils # (A) 3.2 k/uL (1.3-7.7); Neutrophils % (A) 54 %; RBC 4.61 m/uL (4.30-5.90); RDW 13.7 % (11.5-15.5); WBC 5.9 k/uL (3.8-10.6); WBC (Perox) 5.75
[2016-11-05 14:33] LABS: Erythrocyte Sedimentation Rate 24 mm/hr (0-15)
== END | disposition home or self-care (01) ==
LOC: LABWHC1 11:45
PROVIDERS: ATTEND Orthopaedic Surgery
DX: M25.562 Pain in left knee (principal); M25.462 Effusion, left knee
CPT/HCPCS: 36415; 85025; 85652; 86140